=== PATIENT | female | born 1970 | race Caucasian/White ===

== ENCOUNTER → 2021-05-04 | Outpatient (CLI) | payer BC ==
[2021-05-04 11:56] LABS: BASO # 0.02 K/mm3 (0.02-0.10); EOS # 0.04 K/mm3 (0.04-0.40); EOS % 0.8 % (1.0-5.0); HEMOGLOBIN 13.4 g/dL (12.5-16.0); LYMPH# 1.16 K/mm3 (1.50-4.00); MEAN CELL VOLUME 97 fl (78-100); MEAN CORPUSCULAR HEMOGLOBIN 32 pg (27-31); MEAN CORPUSCULAR HGB CONC 33 g/dL (33-37); MEAN PLATELET VOLUME 9.4 fl (7.4-10.4); MONO # 0.38 K/mm3 (0.20-0.80); NEU # 3.32 K/mm3 (1.40-6.50); PLATELET COUNT 260 K/mm3 (130-400); RED BLOOD COUNT 4.23 M/mm3 (4.10-5.30); RED CELL DISTRIBUTION WIDTH 13.5 % (11.5-14.5); WHITE BLOOD COUNT 4.9 K/mm3 (4.8-10.8)
[2021-05-04 12:14] LABS: ALBUMIN 3.9 g/dL (3.5-5.0)
[2021-05-04 12:15] LABS: CALCIUM 8.9 mg/dL (8.3-10.5)
[2021-05-04 12:16] LABS: TOTAL PROTEIN 6.9 g/dL (6.4-8.3)
[2021-05-04 12:18] LABS: TOTAL BILIRUBIN 0.5 mg/dL (0.2-1.2)
== END ==
LOC: LAB 11:38
PROVIDERS: Family Medicine
DX: Z00.00 Encounter for general adult medical examination without abnormal findings (principal); E78.5 Hyperlipidemia, unspecified; R73.9 Hyperglycemia, unspecified; E55.9 Vitamin D deficiency, unspecified

== ENCOUNTER → 2024-02-21 | Outpatient (CLI) | payer MEDICAID | LOC: RAD 12:30 | DX: M79.675 Pain in left toe(s) (principal) ==